=== PATIENT | female | born 1945 | race Caucasian/White ===

== ENCOUNTER 2017-01-25 08:50 | Day surgery (SDC) | payer OTHER ==
[2017-01-25 09:20] VITALS: BMI 24.8
[2017-01-25] MEDS ORDERED: PROPOFOL 20 ML ONE (09:36)
[2017-01-25 10:31] VITALS: TEMP 97.3
[2017-01-25 12:11] VITALS: BP 122/69; PULSE 60
--- NOTE | 2017-01-27 16:50 | PATH ---
Surgical Pathology Report Patient Name: TRINH CRUMP [facility]. Rec. #: [id number] /Age/Gender: 1945 (Age: 71) / F Account: [id number] Location: U-ENDOSCOPY Taken: 01/25/2017 Received: 01/25/2017 Reported: 01/27/2017 Physicians: Aury Cruz M.D. Specimen(s) Received A: BX RECTAL POLYP B: BX-CECAL POLYPS C: DUSTAL TRANSVERSE COLON POLYP D: DESCENDING COLON POLYP E: BX SIGMOID POLYPS Clinical History Preoperative diagnosis: Colon cancer surveillance Postoperative diagnosis: Polyps, diverticulosis Final Diagnosis A. RECTUM, POLYP, BIOPSY: HYPERPLASTIC POLYP. B. CECUM, POLYPS, BIOPSY: POLYPOID COLONIC MUCOSA WITH PROMINENT LYMPHOID AGGREGATES. C. DISTAL TRANSVERSE COLON, POLYP, BIOPSY: TUBULAR ADENOMA. D. DESCENDING COLON, POLYP, BIOPSY: HYPERPLASTIC POLYP, INFLAMED AND CAUTERIZED. E. SIGMOID COLON, POLYPS, BIOPSY: HYPERPLASTIC POLYP. Electronically Signed Candice Drummond M.D. Gross Description A. Received in formalin, labeled "biopsy rectal polyp" are 3 ernst, irregular portions of soft tissue ranging from 0.1-0.4 cm. in greatest dimension. The specimens are submitted in toto in one cassette. B. Received in formalin, labeled "biopsy cecal polyps" are 3 ernst, irregular portions of soft tissue ranging from 0.2-0.4 cm. in greatest dimension. The specimens are submitted in toto in one cassette. C. Received in formalin, labeled "polyp distal transverse colon" is a ernst, irregular portion of soft tissue measuring 0.3 cm. in greatest dimension. The specimen is submitted in toto in one cassette. D. Received in formalin, labeled "polyp descending colon" is a ernst, irregular portion of soft tissue measuring 0.1 cm. in greatest dimension. The specimen is submitted in toto in one cassette. E. Received in formalin, labeled "biopsy sigmoid" are 2 ernst, irregular portions of soft tissue measuring 0.3 and 0.4 cm. in greatest dimension. The specimens are submitted in toto in one cassette. 01/25/201701/25/2017
== END 2017-01-25 11:30 | disposition home or self-care (01) ==
LOC: JASU-ENDO 08:50
PROVIDERS: ATTEND Internal Medicine Gastroenterology
PROC: 0DBL8ZX Excision of Transverse Colon, Via Natural or Artificial Opening Endoscopic, Diagnostic (ICD-10-PCS; 2017-01-25)
PROC: 0DBH8ZX Excision of Cecum, Via Natural or Artificial Opening Endoscopic, Diagnostic (ICD-10-PCS; 2017-01-25)
PROC: 0DBN8ZX Excision of Sigmoid Colon, Via Natural or Artificial Opening Endoscopic, Diagnostic (ICD-10-PCS; 2017-01-25)
PROC: 0DBP8ZX Excision of Rectum, Via Natural or Artificial Opening Endoscopic, Diagnostic (ICD-10-PCS; 2017-01-25)
PROC: 0DBM8ZX Excision of Descending Colon, Via Natural or Artificial Opening Endoscopic, Diagnostic (ICD-10-PCS; principal; 2017-01-25 10:00)
DX: Z12.11 Encounter for screening for malignant neoplasm of colon (principal); Z86.010 Personal history of colon polyps; K62.1 Rectal polyp; K64.8 Other hemorrhoids; K57.30 Diverticulosis of large intestine without perforation or abscess without bleeding; D12.0 Benign neoplasm of cecum; D12.4 Benign neoplasm of descending colon; D12.5 Benign neoplasm of sigmoid colon; D12.3 Benign neoplasm of transverse colon
CPT/HCPCS: 88305-TC

== ENCOUNTER 2017-11-13 21:26 | Inpatient (IN) | payer OTHER ==
[2017-11-13] MEDS ORDERED: DEXAMETHASONE SOD PHOSPHATE 10 MG/1 ML VIAL IVPUSH ONE (21:43)
[2017-11-13] MEDS ORDERED: FAMOTIDINE 20 MG/50 ML IVPB 20 MG/50 ML MG IVPB ONE ×2 (21:43→21:47)
--- NOTE | 2017-11-13 21:45 | PDOC ---
Attending Attestation - HPI HPI: 11/13/17 23:24 The patient is a 72 year old female with a significant PMH of anaphylaxis, arthritis, right mastectomy, colon ca, hypothyroidism, anemia, ans chronic atrial fibrillation who presents to the emergency department with an allergic reaction prior to arrival to ED. The patient reports that she was at a family gathering when she began to experience worsening tongue swelling. She state reports some associated throat swelling as well. The patient reports that she has experienced this episode in the past. She states that she took 4 prednisone and benadryl prior to arrival with no apparent relief. She denies any other symptoms . she denies any fever, chills, nause, vomiting, diarrhea, constipation or urinary symptoms. She denies any chest pain, shortness of breath , headache or dizziness. The patient denies any other complaints. PCP:Dr. Pope - Physicial Exam PE: 11/13/17 23:24 GENERAL: Awake, alert, and fully oriented, in no acute distress HEAD: No signs of trauma EYES: PERRLA, EOMI, sclera anicteric, conjunctiva clear ENT: (+)tongue large, able to lift, swallow and talk with lisp. Auricles normal inspection, hearing grossly normal, nares patent, oropharynx clear without exudates. Moist mucosa NECK: Normal ROM, supple, no lymphadenopathy, JVD, or masses LUNGS: Breath sounds equal, clear to auscultation bilaterally. No wheezes, and no crackles HEART: Regular rate and rhythm, normal S1 and S2, no murmurs, rubs or gallops ABDOMEN: Soft, nontender, normoactive bowel sounds. No guarding, no rebound. No masses EXTREMITIES: Normal range of motion, no edema. No clubbing or cyanosis. No cords, erythema, or tenderness NEUROLOGICAL: Cranial nerves II through XII grossly intact. Normal speech, normal gait SKIN: Warm, Dry, normal turgor, no rashes or lesions noted. Documentation prepared by Susana Deluna, acting as medical device sales for Lo Arndt MD. <Susana Deluna - Last Filed: 11/13/17 23:24> - Resident Resident Name: Yann Willard - ED Attending Attestation I have performed the following: I have examined & evaluated the patient, The case was reviewed & discussed with the resident, I agree w/resident's findings & plan - HPI HPI: 11/13/17 22:19 Pt was at a family gathering this afternoon. At 7:[address] home, she developed tongue swelling. Pt states that she had eaten chips,dip, cucumber, artichokes and veggie pizza. There was a dog in the home, and she has a dog allergy. Pt has had tongue swelling in the past, and body painter cannot figure out what she is allergic to. Pt was treated with steroids and benadryl and epinephrine in the ER. ENT contacted, and they recommend 2 U FFP. Pt will be admitted for observation. She is awaiting her lab results. - Physicial Exam PE: 11/13/17 22:27 Pt is A+Ox3 and in NAD. She is smiling and talking with us as well as family member at the bedside. Pt's tingue hasn't gotten larger or smaller. She will likely be admitted for overnight eval. - Medical Decision Making 11/13/17 22:42 CBC is stable. T+S being done before we get the FFPs. Pt is stable. 11/13/17 23:25 Pt's tongue is stable. 11/13/17 23:43 CXR normal; same as old. Admitted to hospitalist for observation <Lo Arndt - Last Filed: 11/14/17 19:48>
[2017-11-13] MEDS ORDERED: DEXAMETHASONE SOD PHOSPHATE 10 MG/1 ML VIAL ONE (21:47)
[2017-11-13] MEDS ORDERED: EPINEPHrine 1:1,000 0.3 MG/0.3 ML SYR IM ONE (21:58)
[2017-11-13] MEDS ORDERED: EPINEPHrine/PF 1 MG/1 ML (1:1,000) AMPULE ONE (22:03)
--- NOTE | 2017-11-13 22:20 | PDOC ---
History of Present Illness - General Chief Complaint: Allergic Reaction Stated Complaint: Allergic Reaction Time Seen by Provider: 11/13/17 21:32 History Source: Patient Exam Limitations: No Limitations - History of Present Illness Initial Comments: 11/13/17 22:20 Patient is 72F with history of recurrent tongue and throat swelling 2/2 unknown cause, colon cancer, afib, hypothyroidism here today complaining of tongue and throat swelling that started an hour prior to presentation. Patient denies eating new foods or taking new medications. Endorses nausea, denies vomiting. Denies wheezing and shortness of breath. Denies chest pain, abdominal pain, diarrhea. Patient states that she took "4 pills" of prednisone and 1 benadryl with no effect. Past History - Past Medical History Allergies/Adverse Reactions: Allergies Allergy/AdvReac Type Severity Reaction Status Date / Time cat dander Allergy Verified 11/13/17 22:41 cephalexin [From Keflex] Allergy Verified 11/13/17 21:29 dog dander Allergy Verified 11/13/17 22:41 Home Medications: Ambulatory Orders Levothyroxine [Synthroid -] 125 mcg PO DAILY@0700 #0 tablet 04/28/11 Alendronate Na [Fosamax (Weekly)] 70 mg PO Q7D 07/26/14 Verapamil HCl ER [Calan Sr -] 120 mg PO BID 07/26/14 metFORMIN HCL [Glucophage -] 500 mg PO DAILY 07/26/14 Ranitidine [Zantac -] 150 mg PO HS 02/18/15 Devin/D3/Mag11/Zinc/Metal Can Inspector/Sukumar/Bor [Caltrate 600+D Plus Tablet] 1 each PO DAILY 01/01 Cholecalciferol (Vitamin D3) [Vitamin D -] 200 unit PO DAILY 01/25/17 Multivitamin/Iron/Folic Acid [Centrum Adults Tablet] 1 each PO DAILY 01/25/17 Anemia: Yes Asthma: No Cancer: Yes (/RT.MASTECTOMY/CHEMO ; COLON) Cardiac Disorders: Yes (CHRONIC AFIB) CVA: No COPD: No CHF: No Dementia: No Diabetes: Yes GI Disorders: No (COLON POLYPS & COLON CA) Disorders: No HTN: Yes Hypercholesterolemia: No Liver Disease: No Seizures: No Thyroid Disease: Yes - Surgical History Abdominal Surgery: Yes (PARTIAL COLECTOMY FOR COLON CA) Appendectomy: No Cardiac Surgery: No Cholecystectomy: No Lung Surgery: No Neurologic Surgery: No Orthopedic Surgery: Yes - Suicide/Smoking/Psychosocial Hx Smoking Status: No Smoking History: Never smoked Have you smoked in the past 12 months: No Number of Cigarettes Smoked Daily: 0 If you are a former smoker, when did you quit?: 1987 Hx Alcohol Use: Yes (SOCIAL) Drug/Substance Use Hx: No Substance Use Type: None Hx Substance Use Treatment: No Review of Systems - Review of Systems Able to Perform ROS?: Yes Comments:: 11/13/17 22:24 GENERAL/CONSTITUTIONAL: No fever or chills. No weakness. HEAD, EYES, EARS, NOSE AND THROAT: No change in vision. No ear pain or discharge. No sore throat. CARDIOVASCULAR: No chest pain or shortness of breath RESPIRATORY: No cough, wheezing, or hemoptysis. GASTROINTESTINAL: +nausea, no vomiting, diarrhea or constipation. GENITOURINARY: No dysuria, frequency, or change in urination. MUSCULOSKELETAL: No joint or muscle swelling or pain. No neck or back pain. SKIN: No rash NEUROLOGIC: No headache, vertigo, loss of consciousness, or change in strength/ sensation. ENDOCRINE: No increased thirst. No abnormal weight change HEMATOLOGIC/LYMPHATIC: No anemia, easy bleeding, or history of blood clots. ALLERGIC/IMMUNOLOGIC: No hives or skin allergy. *Physical Exam - Vital Signs Last Vital Signs Temp Pulse Resp BP Pulse Ox 98.5 F 80 18 177/79 H 97 11/13/17 21:27 11/13/17 21:27 11/13/17 21:27 11/13/17 21:27 11/13/17 21:27 - Physical Exam Comments: 11/13/17 22:26 GENERAL: Awake, alert, and fully oriented, in no acute distress HEAD: No signs of trauma, normocephalic, atraumatic EYES: PERRLA, EOMI, sclera anicteric, conjunctiva clear ENT: Auricles normal inspection, hearing grossly normal, nares patent, tongue swollen, anterior neck swollen underneath jaw NECK: Normal ROM, supple, no lymphadenopathy, JVD. Anterior neck swollen LUNGS: No distress, speaks full sentences, clear to auscultation bilaterally HEART: Regular rate and rhythm, normal S1 and S2, no murmurs, rubs or gallops, peripheral pulses normal and equal bilaterally. ABDOMEN: Soft, nontender, normoactive bowel sounds. No guarding, no rebound. No masses EXTREMITIES: Normal inspection, Normal range of motion, no edema. No clubbing or cyanosis. NEUROLOGICAL: Cranial nerves II through XII grossly intact. Normal speech, normal gait, no focal sensorimotor deficits SKIN: Warm, Dry, normal turgor, no rashes or lesions noted. ED Treatment Course - LABORATORY CBC & Chemistry Diagram: 11/13/17 22:26 11/13/17 22:26 - RADIOLOGY Radiology Studies Ordered: Category Date Time Status CXRPORT [CHEST X-RAY PORTABLE*] [RAD] Stat Radiology 11/13/17 21:43 Taken - Medications Given in the ED: ED Medications Discontinued Medications Generic Name Dose Route Start Last Admin Trade Name Freq PRN Reason Stop Dose Admin Dexamethasone Sodium Phosphate 10 mg 11/13/17 21:43 11/13/17 22:11 Decadron Injection - IVPUSH 11/13/17 21:44 10 mg ONCE ONE Administration Diphenhydramine HCl 50 mg 11/13/17 21:43 11/13/17 22:11 Benadryl Injection - IVPUSH 11/13/17 21:44 50 mg ONCE ONE Administration Epinephrine 0.3 mg 11/13/17 21:58 11/13/17 22:11 Epipen 0.3mg - IM 11/13/17 21:59 0.3 mg ONCE ONE Administration Famotidine/Sodium Chloride 20 mg in 50 mls @ 100 mls/hr 11/13/17 21:43 22:11 Pepcid 20 Mg Premixed Ivpb - IVPB 11/13/17 22:12 100 mls/hr ONCE ONE Administration Medical Decision Making - Medical Decision Making 11/13/17 22:26 Patient is a 72F with history of recurrent episodes of tongue swelling, afib, hypothyroidism here today with tongue swelling and throat swelling. Vitals normal and stable. Lungs clear. Patient currently protecting airway. Given benadryl, decadron, pepcid, IM epi. Dr Perdomo (ENT, personal cell [phone]) paged, suggests FFP. Will give 2 units. 11/13/17 22:51 Patient reassessed, airway is stable. 11/13/17 23:02 Patient reassessed, airway is stable, tongue same amount of swelling. 11/13/17 23:06 CBC, CMP Unremarkable. EKG shows normal sinus rhythm with rate of 87. No st elevations/depressions. Normal axis. QTc 498. Normal intervals. Diffusely flattened t waves. 11/13/17 23:51 Approved for ICU by Dr Plasencia (Dr Gonzalez attending). D/W Dr Escamilla, accepted to [facility]. *DC/Admit/Observation/Transfer Diagnosis at time of Disposition: Angioedema - Discharge Dispostion Condition at time of disposition: Stable Decision to Admit order: Yes - Referrals Referrals: Yann Pope MD [Primary Care Provider] - - Patient Instructions - Post Discharge Activity
[2017-11-13 22:24] LABS: HEMATOCRIT 37.2 % (32.4-45.2); HEMOGLOBIN 12.2 GM/dL (10.7-15.3); MCH 28.3 pg (25.7-33.7); MCHC 32.7 g/dl (32.0-36.0); MEAN CELL VOLUME 86.5 fl (80-96); MEAN PLT VOLUME 8.8 fl (7.5-11.1); PLATELET COUNT 269 K/MM3 (134-434); RBC 4.31 M/mm3 (3.60-5.2); RDW 13.9 % (11.6-15.6); WHITE BLOOD COUNT 7.2 K/mm3 (4.0-10.0)
[2017-11-13] MEDS ORDERED: SODIUM CHLORIDE 500 ML IV STA (22:34)
[2017-11-13 22:48] LABS: ALBUMIN 4.1 g/dl (3.4-5.0); ALK PHOS 83 U/L (45-117); ANION GAP 8 MMOL/L (8-16); BILIRUBIN,TOTAL 0.3 mg/dL (0.2-1); BLOOD UREA NITROGEN 15 mg/dL (7-18); CALCIUM 9.1 mg/dL (8.5-10.1); CHLORIDE 104 mmol/L (98-107); CO2 27 mmol/L (21-32); CREATININE 0.7 mg/dL (0.55-1.3); GLUCOSE,RANDOM 139 mg/dL (74-106); POTASSIUM 3.9 mmol/L (3.5-5.1); SGOT/AST 25 U/L (15-37); SGPT/ALT 33 U/L (13-61); SODIUM 139 mmol/L (136-145); TOT PROT 7.4 g/dl (6.4-8.2)
[2017-11-14] MEDS ORDERED: SODIUM CHLORIDE 1,000 ML IV SCH (00:30)
[2017-11-14] MEDS ORDERED: PATIENT'S OWN MEDICATION (NON-FORMULARY) (Alendronate Na [Fosamax (Weekly)] 70 MG) PO SCH ×2 (00:30→01:30)
--- NOTE | 2017-11-14 00:38 | PN ---
Teaching Attending Note Name of Resident: José Miguel Escamilla ATTENDING PHYSICIAN STATEMENT I saw and evaluated the patient. I reviewed the resident's note and discussed the case with the resident. I agree with the resident's findings and plan as documented. SUBJECTIVE: OBJECTIVE: ASSESSMENT AND PLAN: 72 y/o female with hx of colon cancer (1998), HTN, breast cancer (1987) and angioedema presented with tongue swelling and heaviness and inability to speak, patient was noted to have an acute exacerbation of her angioedema, patient received dexamethasone,, epinepharine in the ER will admit the patient as observation plan: admit to ICU due to high risk for intubation c/w methylprednisone 40 q8hrs ENT evaluation plasma transfusion keep patient NPO
--- NOTE | 2017-11-14 01:00 | HP ---
CHIEF COMPLAINT: facial swelling HISTORY OF PRESENT ILLNESS: 72 year old female with a history of DMII, HTN, colon and breast CA, and angioedema presents to the hospital for facial swelling that occurred around 7: 30pm last night. Reports that she felt a tingle in her mouth while she was driving, then noticed that her neck began to swell anteriorly and noticed flushing. She denied shortness of breath during the experience. Reports that she has experienced angioedema 8-9 times over the past 15 years but she states that she has not had a workup done to find out why she has had this happen. Denies ever being intubated before. Reports feeling better now than when she first came to the ED. ER course was notable for: (1) labs wnl (2) FFP given in ED based on ENT reccs Recent Travel: denies PAST MEDICAL HISTORY: DMII, HTN, colon and breast CA, and angioedema PAST SURGICAL HISTORY: B/L knee repairs, colectomy, mastectomy Social History: Smoking: quit smoking in 1987 Alcohol: socially Drugs: denies Family History: father passed from stroke Allergies cat dander Allergy (Verified 11/13/17 22:41) cephalexin [From Keflex] Allergy (Verified 11/13/17 21:29) dog dander Allergy (Verified 11/13/17 22:41) HOME MEDICATIONS: Home Medications Medication Instructions Recorded Levothyroxine [Synthroid -] 125 mcg PO DAILY@0700 #0 tablet 04/28/11 Alendronate Na [Fosamax (Weekly)] 70 mg PO Q7D 07/26/14 Verapamil HCl ER [Calan Sr -] 120 mg PO BID 07/26/14 metFORMIN HCL [Glucophage -] 500 mg PO DAILY 07/26/14 Ranitidine [Zantac -] 150 mg PO HS 02/18/15 Devin/D3/Mag11/Zinc/Road Supervisor Of Engines/Sukumar/Bor 1 each PO DAILY 01/25/17 [Caltrate 600+D Plus Tablet] Cholecalciferol (Vitamin D3) 200 unit PO DAILY 01/25/17 [Vitamin D -] Multivitamin/Iron/Folic Acid 1 each PO DAILY 01/25/17 [Centrum Adults Tablet] REVIEW OF SYSTEMS CONSTITUTIONAL: Absent: fever, chills, diaphoresis, generalized weakness, malaise, loss of appetite, weight change HEENT: throat swelling, mouth swelling Absent: rhinorrhea, nasal congestion, throat pain, difficulty swallowing, ear pain, eye pain, visual changes CARDIOVASCULAR: Absent: chest pain, syncope, palpitations, irregular heart rate, lightheadedness , peripheral edema RESPIRATORY: Absent: cough, shortness of breath, dyspnea with exertion, orthopnea, wheezing, stridor, hemoptysis GASTROINTESTINAL: Absent: abdominal pain, abdominal distension, nausea, vomiting, diarrhea, constipation, melena, hematochezia GENITOURINARY: Absent: dysuria, frequency, urgency, hesitancy, hematuria, flank pain, genital pain MUSCULOSKELETAL: Absent: myalgia, arthralgia, joint swelling, back pain, neck pain SKIN: Absent: rash, itching, pallor HEMATOLOGIC/IMMUNOLOGIC: Absent: easy bleeding, easy bruising, lymphadenopathy, frequent infections ENDOCRINE: Absent: unexplained weight gain, unexplained weight loss, heat intolerance, cold intolerance NEUROLOGIC: Absent: headache, focal weakness or paresthesias, dizziness, unsteady gait, seizure, mental status changes, bladder or bowel incontinence PSYCHIATRIC: Absent: anxiety, depression, suicidal or homicidal ideation, hallucinations. PHYSICAL EXAMINATION Vital Signs - 24 hr 11/13/17 11/13/17 11/13/17 21:27 22:09 23:44 Temperature 98.5 F 98.2 F Pulse Rate 80 Pulse Rate [ 89 Apical] Respiratory 18 18 Rate Blood Pressure 177/79 H Blood Pressure 133/63 [Left Arm] O2 Sat by Pulse 97 97 95 Oximetry (%) 11/14/17 00:03 Temperature 98.1 F Pulse Rate Pulse Rate [ 78 Apical] Respiratory 18 Rate Blood Pressure Blood Pressure 174/92 H [Left Arm] O2 Sat by Pulse 97 Oximetry (%) GENERAL: A&Ox3, no acute distress EYES: PERRLA, EOMI ENT: Moist mucus membranes, mild facial swelling noted, mild tongue swelling noted NECK: No JVD LUNGS: CTA, no wheezes HEART: RRR, no murmurs ABDOMEN: Soft, nontender, BS present MUSCULOSKELETAL: No CVA Tenderness EXTREMITIES: 2+ pulses, no edema. NEUROLOGICAL: Cranial nerves II-XII intact. Laboratory Results - last 24 hr 11/13/17 11/13/17 11/13/17 22:07 22:26 22:26 WBC 7.2 RBC 4.31 Hgb 12.2 Hct 37.2 MCV 86.5 MCH 28.3 MCHC 32.7 RDW 13.9 Plt Count 269 MPV 8.8 Sodium 139 Potassium 3.9 Chloride 104 Carbon Dioxide 27 Anion Gap 8 BUN 15 Creatinine 0.7 Creat Clearance w eGFR > 60 Random Glucose 139 H Calcium 9.1 Total Bilirubin 0.3 AST 25 ALT 33 Alkaline Phosphatase 83 Total Protein 7.4 Albumin 4.1 Blood Type Cancelled Antibody Screen Cancelled Antibody Identification Antigen Identification 11/13/17 22:30 WBC RBC Hgb Hct MCV MCH MCHC RDW Plt Count MPV Sodium Potassium Chloride Carbon Dioxide Anion Gap BUN Creatinine Creat Clearance w eGFR Random Glucose Calcium Total Bilirubin AST ALT Alkaline Phosphatase Total Protein Albumin Blood Type A POSITIVE Antibody Screen Positive H Antibody Identification Anti- e Antigen Identification E Antigen - NEGATIVE ASSESSMENT/PLAN: 72 year old female with a history of DMII, HTN, hypothyroid, colon and breast CA , and angioedema is admitted to the hospital for angioedema #Angioedema: improving, unknown cause yet considering she has had it multiple times over the last 15 years, began later in life - may be related to history of 2 primary cancers -heme consult for possible etiology evaluation -solumedrol 40q8 -benadryl ordered -protonix -FFP given -monitor in ICU for worsening -keep NPO for now -IV NS -speech and swallow -ENT consult #Diabetes: stable -metformin when tolerable #Hypertension: stable -continue verapamil when tolerable #Hypothyroid: stable -continue synthroid when tolerable #FEN -IVNS @ 83 -lytes normal -NPO until speech/swallow #Prophylaxis -SCDs #Disposition -admit obs Visit type - Emergency Visit Emergency Visit: Yes ED Registration Date: 11/14/17 Care time: The patient presented to the Emergency Department on the above date and was hospitalized for further evaluation of their emergent condition. - New Patient This patient is new to me today: Yes Date on this admission: 11/14/17 - Critical Care Critical Care patient: Yes Total Critical Care Time (in minutes): 36 Critical Care Statement: The care of this patient involved high complexity decision making to prevent further life threatening deterioration of the patient 's condition and/or to evaluate & treat vital organ system(s) failure or risk of failure. Hospitalist Screening - Colonoscopy Questionnaire Colonoscopy Questionnaire: Colonoscopy Questionnaire - Patient: 50 - 75 years old and never had a screening colonoscopy: No History of colon or rectal polyps, or CA: Yes History of IBD, Crohn's disease or UC: No History of abdominal radiation therapy as a child: No - Relative: 1 with colon or rectal CA, or polyps at age 60 or younger: Unknown Colon or rectal CA diagnosed at age 45 or younger: No Multiple relatives with colon or rectal CA: Unknown - Outcome: Screening Result: Positive Screen
--- NOTE | 2017-11-14 01:14 | CONSULT ---
Consultation: REQUESTING PROVIDER: CONSULT REQUEST: We have been asked to medically evaluate this patient for ICU. HISTORY OF PRESENT ILLNESS: 72 y/o F with PMH breast CA (1997; tx w/chemo), colon CA (1998) repeated episodes of angioedema (8-9x), who presents to the ED c/o throat and tongue swelling that started at 7:30 this evening. As per pt, she was driving home this evening when her tongue began to tingle. She subsequently developed throat and tongue swelling, as well as flushing of the face and difficulty with phonation. Took prednisone and benadryl at home without much relief. Without past intubations and does not know trigger of current episode. States that in the past, she had a similar reaction to cephalexin, and with ambien when being prepped for surgery. However, subsequent episodes occurred without specific connection. In ED, pt received dexamethasone 10mg IVP x 1, epinephrine 0.3mg IM x 1, famotidine 20mg x 1, 500 ccs NS and started on FFP. No family history. Denies SAMANIEGO, fever, chills, or changes in urinary or bowel function. allergies: cats, dogs, cephalexin, ambien family hx: no allergies REVIEW OF SYSTEMS: CONSTITUTIONAL: Absent: fever, chills, diaphoresis, generalized weakness, malaise, loss of appetite, weight change HEENT: +facial swelling Absent: rhinorrhea, nasal congestion, throat pain, throat swelling, difficulty swallowing, mouth swelling, ear pain, eye pain, visual changes CARDIOVASCULAR: Absent: chest pain, syncope, palpitations, irregular heart rate, lightheadedness , peripheral edema RESPIRATORY: Absent: cough, shortness of breath, dyspnea with exertion, orthopnea, wheezing, stridor, hemoptysis GASTROINTESTINAL: Absent: abdominal pain, abdominal distension, nausea, vomiting, diarrhea, constipation, melena, hematochezia GENITOURINARY: Absent: dysuria, frequency, urgency, hesitancy, hematuria, flank pain, genital pain MUSCULOSKELETAL: Absent: myalgia, arthralgia, joint swelling, back pain, neck pain SKIN: Absent: rash, itching, pallor HEMATOLOGIC/IMMUNOLOGIC: Absent: easy bleeding, easy bruising, lymphadenopathy, frequent infections ENDOCRINE: Absent: unexplained weight gain, unexplained weight loss, heat intolerance, cold intolerance NEUROLOGIC: Absent: headache, focal weakness or paresthesias, dizziness, unsteady gait, seizure, mental status changes, bladder or bowel incontinence PSYCHIATRIC: Absent: anxiety, depression, suicidal or homicidal ideation, hallucinations. PHYSICAL EXAMINATION Vital Signs - 24 hr 11/13/17 11/13/17 11/13/17 21:27 22:09 23:44 Temperature 98.5 F 98.2 F Pulse Rate 80 Pulse Rate [ 89 Apical] Respiratory 18 18 Rate Blood Pressure 177/79 H Blood Pressure 133/63 [Left Arm] O2 Sat by Pulse 97 97 95 Oximetry (%) 11/14/17 00:03 Temperature 98.1 F Pulse Rate Pulse Rate [ 78 Apical] Respiratory 18 Rate Blood Pressure Blood Pressure 174/92 H [Left Arm] O2 Sat by Pulse 97 Oximetry (%) GENERAL: Resting in bed. Awake, alert, and fully oriented, in no acute distress. HEAD: Normal with no signs of trauma. +facial flushing EYES: Pupils equal, round and reactive to light, extraocular movements intact, sclera anicteric, conjunctiva clear. EARS, NOSE, THROAT: Ears normal, nares patent, +edematous tongue, uvula NECK: Normal range of motion, supple without lymphadenopathy, JVD, or masses. LUNGS: Breath sounds equal, clear to auscultation bilaterally. No wheezes, and no crackles. No accessory muscle use. HEART: Regular rate and rhythm, normal S1 and S2 without murmur, rub or gallop. ABDOMEN: Soft, nontender, not distended, normoactive bowel sounds, no guarding, no rebound, no masses. LOWER EXTREMITIES: 2+ pt pulses, warm, well-perfused. No calf tenderness. No peripheral edema. NEUROLOGICAL: Cranial nerves II-XII intact. +difficulty with phonation PSYCHIATRIC: Cooperative. Good eye contact. Appropriate mood and affect. SKIN: Warm, dry, normal turgor Laboratory Results 11/13/17 11/13/17 11/13/17 22:07 22:26 22:26 WBC 7.2 RBC 4.31 Hgb 12.2 Hct 37.2 MCV 86.5 MCH 28.3 MCHC 32.7 RDW 13.9 Plt Count 269 MPV 8.8 Sodium 139 Potassium 3.9 Chloride 104 Carbon Dioxide 27 Anion Gap 8 BUN 15 Creatinine 0.7 Creat Clearance w eGFR > 60 Random Glucose 139 H Calcium 9.1 Total Bilirubin 0.3 AST 25 ALT 33 Alkaline Phosphatase 83 Total Protein 7.4 Albumin 4.1 Active Medications Generic Name Dose Route Start Last Admin Trade Name Freq PRN Reason Stop Dose Admin Chlorhexidine Gluconate 1 applic 11/14/17 22:00 Hibiclens For Decolonization - TP HS [facility] Cholecalciferol 200 unit 11/14/17 10:00 Vitamin D3 - PO DAILY MOY Sodium Chloride 1,000 mls @ 83 mls/hr 11/14/17 00:30 Normal Saline - IV ASDIR MOY Levothyroxine Sodium 125 mcg 11/14/17 07:00 Synthroid - PO DAILY@0700 MOY Metformin HCl 500 mg 11/14/17 10:00 Glucophage - PO DAILY MOY Methylprednisolone Sodium Succinate 40 mg 11/14/17 02:00 Solu-Medrol - IVPUSH Q8H-IV MOY Mupirocin 1 applic 11/14/17 10:00 Bactroban Ointment (For Decolonization) - NS 11/19/17 09:59 BID MOY Non-Formulary Medication 70 mg 11/14/17 00:30 11/14/17 01:06 Alendronate Na [Fosamax (Weekly)] PO Not Given Q7D MOY Non-Formulary Medication 1 each 11/14/17 10:00 Devin/D3/Mag11/Zinc/Legislative Advocate/Sukumar/Bor [Caltrate 600+D Plus Tablet] PO DAILY MOY Non-Formulary Medication 1 each 11/14/17 10:00 Multivitamin/Iron/Folic Acid [Centrum Adults Tablet] PO DAILY MO[facility] Ranitidine HCl 150 mg 11/14/17 22:00 Zantac - PO HS [facility] Verapamil HCl 120 mg 11/14/17 10:00 Calan Sr - PO BID [facility] ASSESSMENT/PLAN: 72 y/o F with PMH breast CA (1997; tx w/chemo), colon CA (1998) repeated episodes of angioedema (8-9x), who presents to the ED c/o throat and tongue swelling that started at 7:30 this evening. Pt admitted to ICU for observation 2 /2 angioedema, airway monitoring. Allergy/Immuno #Angioedema -continue to monitor airway for signs of compromise -continue FFP, 2U -benadryl 25mg IVP q6h PRN -solumedrol 40mg IVP q8h -ENT evaluation: Dr. Perdomo -heme evaluation as per primary team - to assess for acquired dz d/t repeated episodes Endocrine #DM -metformin when able to tolerate PO #Hypothyroid -synthroid as above Cardio #Hypertension- currently controlled -verapamil as above #F/E/N IV NS 83 cc/hr continue to follow lytes NPO; speech and swallow consult #PPX DVT: SCD's GI: protonix 40mg IVP qd #Dispo ICU monitoring overnight to assess for airway, expect transfer tomorrow if continues to improve. Dispo: We will continue to follow the patient. Thank you for this consultative opportunity. Visit type - Emergency Visit Emergency Visit: Yes ED Registration Date: 11/14/17 Care time: The patient presented to the Emergency Department on the above date and was hospitalized for further evaluation of their emergent condition. - New Patient This patient is new to me today: Yes Date on this admission: 11/14/17 - Critical Care Critical Care patient: Yes Total Critical Care Time (in minutes): 45 Critical Care Statement: The care of this patient involved high complexity decision making to prevent further life threatening deterioration of the patient 's condition and/or to evaluate & treat vital organ system(s) failure or risk of failure.
[2017-11-14] MEDS ORDERED: methylPREDNISolone NA SUCC 40 MG/1 ML VIAL IVPUSH SCH ×2 (02:00→22:00)
[2017-11-14 02:13] VITALS: BMI 26.3
[2017-11-14] MEDS ORDERED: LEVOTHYROXINE NA 125 MCG TABLET (FP) PO SCH (07:00)
[2017-11-14] MEDS ORDERED: metFORMIN HCL 500 MG TABLET (FP) PO SCH (07:00)
--- NOTE | 2017-11-14 09:11 | PN ---
Physical Exam: SUBJECTIVE: Patient seen and examined at bedside. No acute complaints. OBJECTIVE: Vital Signs Period Temp Pulse Resp BP Sys/Hurst Pulse Ox Last 24 Hr 98.1 F-983 F 67-89 11-20 133-183/63-92 95-100 GENERAL: A&Ox3, NAD EYES: PERRLA, EOMI ENT: Moist mucus membranes, no edema or erythema appreciated NECK: supple, full ROM, no LAD, no JVD LUNGS: CTA b/l, no wheezes HEART: RRR, no murmurs ABDOMEN: +bs, soft, nontender, non-distended EXTREMITIES: 2+ pulses, no edema NEUROLOGICAL: blade changer, motor, sensory systems without focal deficit Laboratory Results - last 24 hr 11/13/17 11/13/17 11/13/17 22:07 22:26 22:26 WBC 7.2 RBC 4.31 Hgb 12.2 Hct 37.2 MCV 86.5 MCH 28.3 MCHC 32.7 RDW 13.9 Plt Count 269 MPV 8.8 Sodium 139 Potassium 3.9 Chloride 104 Carbon Dioxide 27 Anion Gap 8 BUN 15 Creatinine 0.7 Creat Clearance w eGFR > 60 Random Glucose 139 H Calcium 9.1 Total Bilirubin 0.3 AST 25 ALT 33 Alkaline Phosphatase 83 Total Protein 7.4 Albumin 4.1 Blood Type Cancelled Antibody Screen Cancelled Antibody Identification Antigen Identification 11/13/17 22:30 WBC RBC Hgb Hct MCV MCH MCHC RDW Plt Count MPV Sodium Potassium Chloride Carbon Dioxide Anion Gap BUN Creatinine Creat Clearance w eGFR Random Glucose Calcium Total Bilirubin AST ALT Alkaline Phosphatase Total Protein Albumin Blood Type A POSITIVE Antibody Screen Positive H Antibody Identification Anti- e Antigen Identification E Antigen - NEGATIVE Active Medications Generic Name Dose Route Start Last Admin Trade Name Freq PRN Reason Stop Dose Admin Calcium Carbonate/Cholecalciferol 1 tab 11/14/17 10:00 Os-Devin 500+D - PO DAILY MOY Chlorhexidine Gluconate 1 applic 11/14/17 22:00 Hibiclens For Decolonization - TP HS [facility] Cholecalciferol 200 unit 11/14/17 10:00 Vitamin D3 - PO DAILY [facility] Diphenhydramine HCl 25 mg 11/14/17 01:16 Benadryl Injection - IVPUSH Q6H PRN FOR ITCHING Influenza Virus Vaccine Quadrival 60 mcg 11/14/17 10:00 Flulaval Quad [id number] IM 11/14/17 10:01 .ONCE ONE Levothyroxine Sodium 125 mcg 11/14/17 07:00 11/14/17 06:38 Synthroid - PO 125 mcg DAILY@0700 MOY Administration Metformin HCl 500 mg 11/14/17 07:00 11/14/17 06:38 Glucophage - PO 500 mg DAILY@0700 MOY Administration Methylprednisolone Sodium Succinate 40 mg 11/14/17 02:00 11/14/17 02:58 Solu-Medrol - IVPUSH 40 mg Q8H-IV MOY Administration Multivitamins/Minerals/Vitamin C 1 tab 11/14/17 10:00 Tab-A-Vit - PO DAILY [facility] Mupirocin 1 applic 11/14/17 10:00 Bactroban Ointment (For Decolonization) - NS 11/19/17 09:59 BID [facility] Non-Formulary Medication 70 mg 11/14/17 01:30 Alendronate Na [Fosamax (Weekly)] PO Q7D [facility] Pantoprazole Sodium 40 mg 11/14/17 10:00 Protonix Iv IVPUSH DAILY [facility] Pneumococcal 13-Valent Conj Vacc 0.5 ml 11/14/17 10:00 Prevnar 13 Syringe - IM 11/14/17 10:01 .ONCE ONE Ranitidine HCl 150 mg 11/14/17 22:00 Zantac - PO HS MOY Verapamil HCl 120 mg 11/14/17 10:00 Calan Sr - PO BID [facility] ASSESSMENT/PLAN: 72 y/o F w/ PMHx DMII, HTN, hypothyroid, colon and breast CA, and angioedema admitted for acute episode of angioedema #Angioedema: -resolved -multiple episodes over 15 years, cause unknown -heme consult for possible etiology evaluation -solumedrol 40q12 -benadryl PRN -protonix -2 U FFP given in ED per ENT reccs -speech and swallow -ENT consult #Diabetes -controlled -home metformin #HTN -controlled -home verapamil #Hypothyroidism -home synthroid #FEN -no IVF -lytes normal -diabetic diet after clearance by S/S #PPx -DVT: SCDs -GI: Protonix #Dispo -transfer to med-surg vs D/C Visit type - Emergency Visit Emergency Visit: No - New Patient This patient is new to me today: Yes Date on this admission: 11/14/17 - Critical Care Critical Care patient: Yes Total Critical Care Time (in minutes): 40 Critical Care Statement: The care of this patient involved high complexity decision making to prevent further life threatening deterioration of the patient 's condition and/or to evaluate & treat vital organ system(s) failure or risk of failure.
[2017-11-14] MEDS ORDERED: predniSONE 20 MG TABLET (UD) PO SCH ×2 (10:00→22:00)
[2017-11-14] MEDS ORDERED: PNEUMOC 13-VAL CONJ-DIP CRM/PF 0.5 ML DISP.SYRIN IM ONE (10:00)
[2017-11-14] MEDS ORDERED: CHOLECALCIFEROL (VITAMIN D3) 400 UNIT TABLET (FP) PO SCH (10:00)
[2017-11-14] MEDS ORDERED: CALCIUM 500MG/VIT-D 200 UNITS COMBO TABLET (FP) PO SCH (10:00)
[2017-11-14] MEDS ORDERED: MUPIROCIN 2% TOPICAL OINTMENT FOR DECOLONIZATION NS SCH (10:00)
[2017-11-14] MEDS ORDERED: VERAPAMIL HCL 120 MG E.R. TABLET PO SCH (10:00)
[2017-11-14] MEDS ORDERED: PANTOPRAZOLE SODIUM 40 MG VIAL IVPUSH SCH (10:00)
[2017-11-14] MEDS ORDERED: FAMOTIDINE 20 MG/50 ML IVPB 20 MG/50 ML MG IVPB SCH (10:00)
[2017-11-14] MEDS ORDERED: MULTIVITAMINS (DAILY MVI) TABLET (FP) PO SCH (10:00)
[2017-11-14] MEDS ORDERED: FLU VACCINE QUAD 60 MCG/0.5 ML (MDV 18-19) IM ONE (10:00)
[2017-11-14 10:33] LABS: HEMATOCRIT 38.8 % (32.4-45.2); HEMOGLOBIN 12.8 GM/dL (10.7-15.3); MCH 28.5 pg (25.7-33.7); MEAN CELL VOLUME 86.4 fl (80-96); MEAN PLT VOLUME 8.5 fl (7.5-11.1); PLATELET COUNT 271 K/MM3 (134-434); RBC 4.49 M/mm3 (3.60-5.2); RDW 13.9 % (11.6-15.6); WHITE BLOOD COUNT 10.7 K/mm3 (4.0-10.0)
[2017-11-14 10:51] LABS: ANION GAP 9 MMOL/L (8-16); BLOOD UREA NITROGEN 13 mg/dL (7-18); CHLORIDE 105 mmol/L (98-107); CO2 26 mmol/L (21-32); CREATININE 0.6 mg/dL (0.55-1.3); GLUCOSE,RANDOM 152 mg/dL (74-106); PHOSPHOROUS 2.8 mg/dL (2.5-4.9); POTASSIUM 4.6 mmol/L (3.5-5.1); SODIUM 140 mmol/L (136-145)
--- NOTE | 2017-11-14 10:54 | PN ---
Teaching Attending Note Name of Resident: Marc Cline ATTENDING PHYSICIAN STATEMENT I saw and evaluated the patient. I reviewed the resident's note and discussed the case with the resident. I agree with the resident's findings and plan as documented. SUBJECTIVE: Pt seen and examined in the ICU. Feels back to baseline. No shortness of breath , dysphagia or dysphonia. OBJECTIVE: Vital Signs Period Temp Pulse Resp BP Sys/Hurst Pulse Ox Last 24 Hr 96.0 F-983 F 67-89 11-20 133-183/63-92 95-100 Intake & Output 11/11/17 11/12/17 11/13/17 11/14/17 23:59 23:59 23:59 23:59 Intake Total 700 Balance 700 Weight 72.575 kg 73.981 kg Gen: NAD at rest Heart: RRR Lung: decreased breath sounds at the bases Abd: soft, nontender Ext: no edema CBC, BMP 11/14/17 10:10 11/14/17 10:10 Active Medications Calcium Carbonate/Cholecalciferol (Os-Devin 500+D -) 1 tab PO DAILY [facility] Chlorhexidine Gluconate (Hibiclens For Decolonization -) 1 applic TP HS [facility] Cholecalciferol (Vitamin D3 -) 200 unit PO DAILY [facility] Diphenhydramine HCl (Benadryl Injection -) 25 mg IVPUSH Q6H PRN PRN Reason: FOR ITCHING Levothyroxine Sodium (Synthroid -) 125 mcg PO DAILY@0700 [facility] Last Admin: 11/14/17 06:38 Dose: 125 mcg Metformin HCl (Glucophage -) 500 mg PO DAILY@0700 [facility] Last Admin: 11/14/17 06:38 Dose: 500 mg Multivitamins/Minerals/Vitamin C (Tab-A-Vit -) 1 tab PO DAILY [facility] Mupirocin (Bactroban Ointment (For Decolonization) -) 1 applic NS BID [facility] Stop: 11/19/17 09:59 Pantoprazole Sodium (Protonix Iv) 40 mg IVPUSH DAILY [facility] Prednisone (Deltasone -) 40 mg PO DAILY [facility] Stop: 11/15/17 12:00 Ranitidine HCl (Zantac -) 150 mg PO HS [facility] Verapamil HCl (Calan Sr -) 120 mg PO BID [facility] ASSESSMENT AND PLAN: Angioedema resolving HTN DM Hypothyroidism h/o Colon and Breast Ca - can change steroids to PO prednisone - antihistamines - continue home meds - can monitor on floor or d/c home - needs outpt allergy f/u
[2017-11-14] MEDS: ACETAMINOPHEN 325 MG TABLET (FP) PO ONE ×2 (11:22→17:39)
[2017-11-14 14:47] VITALS: TEMP 97
--- NOTE | 2017-11-14 16:51 | PN ---
Progress Note, Physician History of Present Illness: 72 y/o female with hx of colon cancer (1998), HTN, breast cancer (1987) and angioedema presented with tongue swelling and heaviness and inability to speak, patient was noted to have an acute exacerbation of her angioedema, patient received dexamethasone,, epinepharine - Current Medication List Current Medications: Active Medications Calcium Carbonate/Cholecalciferol (Os-Devin 500+D -) 1 tab PO DAILY [facility] Last Admin: 11/14/17 10:49 Dose: 1 tab Chlorhexidine Gluconate (Hibiclens For Decolonization -) 1 applic TP HS [facility] Cholecalciferol (Vitamin D3 -) 200 unit PO DAILY [facility] Last Admin: 11/14/17 10:49 Dose: 200 unit Diphenhydramine HCl (Benadryl Injection -) 25 mg IVPUSH Q6H PRN PRN Reason: FOR ITCHING Levothyroxine Sodium (Synthroid -) 125 mcg PO DAILY@0700 [facility] Last Admin: 11/14/17 06:38 Dose: 125 mcg Metformin HCl (Glucophage -) 500 mg PO DAILY@0700 [facility] Last Admin: 11/14/17 06:38 Dose: 500 mg Multivitamins/Minerals/Vitamin C (Tab-A-Vit -) 1 tab PO DAILY [facility] Last Admin: 11/14/17 10:48 Dose: 1 tab Mupirocin (Bactroban Ointment (For Decolonization) -) 1 applic NS BID [facility] Stop: 11/19/17 09:59 Last Admin: 11/14/17 10:48 Dose: 1 applic Pantoprazole Sodium (Protonix Iv) 40 mg IVPUSH DAILY [facility] Last Admin: 11/14/17 10:49 Dose: 40 mg Prednisone (Deltasone -) 40 mg PO DAILY [facility] Stop: 11/15/17 12:00 Last Admin: 11/14/17 10:57 Dose: 40 mg Ranitidine HCl (Zantac -) [address] [facility] Verapamil HCl (Calan Sr -) 120 mg PO BID [facility] Last Admin: 11/14/17 10:50 Dose: 120 mg - Objective Vital Signs: Vital Signs Temperature 97.0 F L 11/14/17 14:00 Pulse Rate 80 11/14/17 14:00 Respiratory Rate 20 11/14/17 14:00 Blood Pressure 124/63 11/14/17 14:00 O2 Sat by Pulse Oximetry (%) 100 11/14/17 09:00 Labs: CBC, BMP 11/14/17 10:10 11/14/17 10:10 Problem List - Problems (1) Angioedema Code(s): T78.3XXA - ANGIONEUROTIC EDEMA, INITIAL ENCOUNTER (2) Atrial fibrillation Code(s): I48.91 - UNSPECIFIED ATRIAL FIBRILLATION (3) Diabetes Code(s): E11.9 - TYPE 2 DIABETES MELLITUS WITHOUT COMPLICATIONS (4) Hypothyroid Code(s): E03.9 - HYPOTHYROIDISM, UNSPECIFIED (5) HTN (hypertension) Code(s): I10 - ESSENTIAL (PRIMARY) HYPERTENSION
[2017-11-14 17:23] VITALS: BP 138/71; PULSE 110
[2017-11-14] MEDS ORDERED: diphenhydrAMINE HCL 25 MG CAPSULE (FP) PO PRN (17:42)
--- NOTE | 2017-11-14 17:47 | DS ---
Physical Examination Vital Signs: Vital Signs Temperature 97.0 F L 11/14/17 14:00 Pulse Rate 110 H 11/14/17 16:00 Respiratory Rate 21 H 11/14/17 16:00 Blood Pressure 138/71 11/14/17 16:00 O2 Sat by Pulse Oximetry (%) 100 11/14/17 09:00 Constitutional: Yes: Well Nourished, No Distress, Calm Eyes: Yes: Conjunctiva Clear, EOM Intact, PERRL. No: Diplopia, Sclera Icterus HENT: Yes: WNL, Atraumatic, Normocephalic, Other (No platal edema or Tongue swelling). No: Drooling, Hoarseness, Pharyngeal Erythema, Tonsillar Exudate Neck: Yes: Supple, Trachea Midline Respiratory: Yes: Regular, CTA Bilaterally Gastrointestinal: Yes: Normal Bowel Sounds, Soft. No: Tenderness, Rebound ...Rectal Exam: Yes: Deferred Extremities: No: Calf Tenderness Edema: No Peripheral Pulses: Left Doralis Pedis: 1+, Right Dorsalis Pedis: 1+ Neurological: Yes: Alert, Oriented, Cran Nerves II-XII Intact. No: Aphasia, Asterixis, Ataxia ...Motor Strength: WNL, LUE, LLE, RUE, RLE Labs: CBC, BMP 11/14/17 10:10 11/14/17 10:10 Discharge Summary Reason For Visit: ANGIOEDEMA Current Active Problems Angioedema (Acute) Hospital Course: 72 year old female with a history of DMII, HTN, colon and breast CA, and angioedema presents to the hospital for facial swelling that occurred around 7: 30pm last night. Reports that she felt a tingle in her mouth while she was driving, then noticed that her neck began to swell anteriorly and noticed flushing. She denied shortness of breath during the experience. Reports that she has experienced angioedema 8-9 times over the past 15 years but she states that she has not had a workup done to find out why she has had this happen. Denies ever being intubated before. Reports feeling better now than when she first came to the ED. Condition: Stable - Instructions Referrals: Yann Pope MD [Primary Care Provider] - 11/15/17 Disposition: HOME - Home Medications Comprehensive Discharge Medication List: Ambulatory Orders Levothyroxine [Synthroid -] 125 mcg PO DAILY@0700 #0 tablet 04/28/11 Alendronate Na [Fosamax (Weekly)] 70 mg PO Q7D 07/26/14 Verapamil HCl ER [Calan Sr -] 120 mg PO BID 07/26/14 metFORMIN HCL [Glucophage -] 500 mg PO DAILY 07/26/14 Ranitidine [Zantac -] 150 mg PO HS 02/18/15 Devin/D3/Mag11/Zinc/Trade Show Coordinator/Sukumar/Bor [Caltrate 600+D Plus Tablet] 1 each PO DAILY 01/01 Cholecalciferol (Vitamin D3) [Vitamin D -] 200 unit PO DAILY 01/25/17 Multivitamin/Iron/Folic Acid [Centrum Adults Tablet] 1 each PO DAILY 01/25/17 Diphenhydramine HCl [Benadryl Capsule -] 25 mg PO Q6H PRN capsule 11/14/17 predniSONE [Deltasone -] 20 mg PO BID 6 Days #12 tablet 11/14/17
[2017-11-14] MEDS ORDERED: CHLORHEXIDINE GLUCONATE 4% CLEANSER FOR DECOLONIZATION TP SCH (22:00)
[2017-11-14] MEDS ORDERED: RANITIDINE HCL 150 MG TABLET (FP) PO SCH (22:00)
--- NOTE | 2017-11-15 06:29 | EKG ---
Test Reason : Blood Pressure : / mmHG Vent. Rate : 087 BPM Atrial Rate : 087 BPM P-R Int : 180 ms QRS Dur : 092 ms QT Int : 414 ms P-R-T Axes : 019 -17 013 degrees QTc Int : 498 ms NORMAL SINUS RHYTHM MINIMAL VOLTAGE CRITERIA FOR LVH, MAY BE NORMAL VARIANT PROLONGED QT ABNORMAL ECG WHEN COMPARED WITH ECG OF 05-MAR-2015 13:57, QT HAS LENGTHENED Confirmed by SAAD WHITFIELD, TOMÁS ([id number]) on 11/15/2017 6:29:13 AM Referred By: Confirmed By:TOMÁS NASH MD
== END 2017-11-14 18:15 | disposition home or self-care (01) | DRG 916 ==
LOC: JER 21:26 → JERBED 23:53 → UNDOADMOB 23:53 → INTOOBSV 23:53 → JERBED 11-14 01:03 → JICU 11-14 01:56 → OBSVTOIN 11-14 01:59
PROVIDERS: ADMIT Internal Medicine; ATTEND Internal Medicine
DX: T78.3XXA Angioneurotic edema, initial encounter (principal); E03.9 Hypothyroidism, unspecified; I48.2 Chronic atrial fibrillation; Z79.01 Long term (current) use of anticoagulants; D64.9 Anemia, unspecified; Z85.038 Personal history of other malignant neoplasm of large intestine; Z90.11 Acquired absence of right breast and nipple; Z91.048 Other nonmedicinal substance allergy status; Z79.84 Long term (current) use of oral hypoglycemic drugs; Z85.3 Personal history of malignant neoplasm of breast; E11.9 Type 2 diabetes mellitus without complications; Z90.49 Acquired absence of other specified parts of digestive tract; Z87.891 Personal history of nicotine dependence
CPT/HCPCS: 36415; 36430; 71045-TC-FY; 80048; 80053; 83735; 84100; 85027; 86850; 86870; 86900; 86901; 86902; 90670; 90688; 93005; 93010; 99285-25; G0008; G0009; G0378; J1100; P9017

== ENCOUNTER 2019-01-29 16:30 | Emergency (ER) | payer OTHER ==
[2019-01-29 16:39] VITALS: BP 148/72; PULSE 64; TEMP 97.5; BMI 25.2
[2019-01-29] MEDS ORDERED: IBUPROFEN 600 MG TABLET (FP) PO ONE ×2 (18:06→18:12)
[2019-01-29] MEDS ORDERED: CYCLOBENZAPRINE HCL 10 MG TABLET (FP) PO ONE (18:07)
--- NOTE | 2019-01-29 18:07 | PDOC ---
History of Present Illness - General Chief Complaint: Pain Stated Complaint: LT HIP PAIN History Source: Patient Exam Limitations: No Limitations - History of Present Illness Initial Comments: 01/29/19 18:00 Patient is 73 year old female with h/o bladder lift x2, CA breast, colon CA, HTN , DM, Right knee replacement, right femur fracture with pins c/o left hip pain x 4 days. Patient states that the pain is in deep inside the hip which is now 5 /10 worse with standing, pain occasionally radiates to the thigh. She has taken Advil for the pain last dose was about midday with mild relief of symptoms. States she fell 2 months ago, hitting the back on a wooden table, but was all right after the fall. Denies bowel incontinence. Has bladder incontinence but this is a chronic issue and occurred before the fall. PMD: Dr. Joel PMHX: as above PSOCHX: Occasional glass of wine, no cigarettes ALL: Anaphylaxis to unknown substance, cephalexin GENERAL/CONSTITUTIONAL: [No fever or chills. No weakness. No weight change.] HEAD, EYES, EARS, NOSE AND THROAT: [No change in vision. No ear pain or discharge. No sore throat.] CARDIOVASCULAR: [No chest pain or shortness of breath.] RESPIRATORY: [No cough, wheezing, or hemoptysis.] GASTROINTESTINAL: [No nausea, vomiting, diarrhea or constipation. No rectal bleeding.] GENITOURINARY: [No dysuria, frequency, or change in urination.] MUSCULOSKELETAL: [No joint or muscle swelling or pain. No neck or back pain.] SKIN AND BREASTS: [No rash or easy bruising.] NEUROLOGIC: [No headache, vertigo, loss of consciousness, or loss of sensation.] PSYCHIATRIC: [No depression or anxiety.] ENDOCRINE: [No increased thirst. No abnormal weight change.] HEMATOLOGIC/LYMPHATIC: [No anemia, easy bleeding, or history of blood clots.] ALLERGIC/IMMUNOLOGIC: [No hives or skin allergy. No latex allergy.] GENERAL: [The patient is awake, alert, and fully oriented, in no acute distress. ] HEAD: [Normal with no signs of trauma.] EYES: [Pupils equal, round and reactive to light, extraocular movements intact, sclera anicteric, conjunctiva clear.] ENT: [Ears normal, nares patent, oropharynx clear without exudates. Moist mucous membranes.] NECK: [Normal range of motion, supple without lymphadenopathy, JVD, or masses.] LUNGS: [Breath sounds equal, clear to auscultation bilaterally. No wheezes, and no crackles.] HEART: [Regular rate and rhythm, normal S1 and S2 without murmur, rub.] ABDOMEN: [Soft, nontender, normoactive bowel sounds. No guarding, no rebound. No masses.] EXTREMITIES: [Normal range of motion, no edema. No clubbing or cyanosis. No cords, erythema, or tenderness.] NEUROLOGICAL: [Cranial nerves II through XII grossly intact. Normal speech, normal gait.] PSYCH: [Normal mood, normal affect.] SKIN: [Warm, Dry, normal turgor, no rashes or lesions noted.] Past History - Past Medical History Allergies/Adverse Reactions: Allergies Allergy/AdvReac Type Severity Reaction Status Date / Time cat dander Allergy Verified 01/29/19 16:39 cephalexin [From Keflex] Allergy Verified 01/29/19 16:39 dog dander Allergy Verified 01/29/19 16:39 Home Medications: Ambulatory Orders Levothyroxine [Synthroid -] 125 mcg PO DAILY@0700 #0 tablet 04/28/11 Alendronate Na [Fosamax (Weekly)] 70 mg PO Q7D 07/26/14 Verapamil HCl ER [Calan Sr -] 120 mg PO BID 07/26/14 metFORMIN HCL [Glucophage -] 500 mg PO DAILY 07/26/14 Ranitidine [Zantac -] 150 mg PO HS 02/18/15 Devin/D3/Mag11/Zinc/Veneer Drier Tailer/Sukumar/Bor [Caltrate 600+D Plus Tablet] 1 each PO DAILY 01/01 Cholecalciferol (Vitamin D3) [Vitamin D -] 200 unit PO DAILY 01/25/17 Multivitamin/Iron/Folic Acid [Centrum Adults Tablet] 1 each PO DAILY 01/25/17 Diphenhydramine HCl [Benadryl Capsule -] 25 mg PO Q6H PRN capsule 11/14/17 predniSONE [Deltasone -] 20 mg PO BID 6 Days #12 tablet 11/14/17 Cyclobenzaprine HCl [Flexeril 10 mg] 10 mg PO QID #20 tablet 12/15/19 Tramadol HCl 50 mg PO QID #20 tablet MDD 6 01/29/19 Anemia: Yes Asthma: No Cancer: Yes (/RT.MASTECTOMY/CHEMO ; COLON) Cardiac Disorders: Yes (CHRONIC AFIB) CVA: No COPD: No CHF: No Dementia: No Diabetes: Yes GI Disorders: No (COLON POLYPS & COLON CA) Disorders: No HTN: Yes Hypercholesterolemia: No Liver Disease: No Seizures: No Thyroid Disease: Yes Other medical history: PE - Surgical History Abdominal Surgery: Yes (PARTIAL COLECTOMY FOR COLON CA) Appendectomy: No Cardiac Surgery: Yes (IVC FILTER) Cholecystectomy: No Lung Surgery: No Neurologic Surgery: No Orthopedic Surgery: Yes - Immunization History Immunization Up to Date: Yes - Psycho Social/Smoking Cessation Hx Smoking Status: No Smoking History: Never smoked Have you smoked in the past 12 months: No Number of Cigarettes Smoked Daily: 0 If you are a former smoker, when did you quit?: 1987 Hx Alcohol Use: Yes (SOCIAL) Drug/Substance Use Hx: No Substance Use Type: None Hx Substance Use Treatment: No *Physical Exam - Vital Signs Last Vital Signs Temp Pulse Resp BP Pulse Ox 97.5 F L 64 18 148/72 97 01/29/19 16:33 01/29/19 16:33 01/29/19 16:33 01/29/19 16:33 01/29/19 16:33 Medical Decision Making - Medical Decision Making 01/29/19 18:00 Patient is 73 year old female with h/o bladder lift x2, CA breast, colon CA, HTN , DM, Right knee replacement, right femur fracture with pins c/o left hip pain x 4 days. Patient states that the pain is in deep inside the hip which is now 5 /10 worse with standing, pain occasionally radiates to the thigh. She has taken Advil for the pain last dose was about midday with mild relief of symptoms. States she fell 2 months ago, hitting the back on a wooden table, but was all right after the fall. Denies bowel incontinence. Has bladder incontinence but this is a chronic issue and occurred before the fall. Symptoms consistent with sciatica. Will x-ray hip and pelvis left to rule out occult fracture Give Motrin and Flexeril for pain X-ray reviewed no acute fracture, hip shows DJD. Patient reassessed states her pain is still persistent will give tramadol 50 mg p.o. I discussed the physical exam findings, ancillary test results and final diagnoses with the patient. I answered all of the patient's questions. The patient was satisfied with the care received and felt comfortable with the discharge plan and treatment plan. The Patient agrees to follow up with the primary care physician within 24-72 hours. Discharge - Discharge Information Problems reviewed: Yes Clinical Impression/Diagnosis: Sciatica Qualifiers: Laterality: left Qualified Code(s): M54.32 - Sciatica, left side Condition: Stable Disposition: HOME - Follow up/Referral Referrals: Clayton Hernandes MD [Staff Physician] - - Patient Discharge Instructions Patient Printed Discharge Instructions: DI for Sciatica Additional Instructions: Your Discharge Instructions: You must call primary care physician within 24 hours to arrange follow-up. Return to the Emergency Department with any new, persistent or worsening symptoms, for fever, chills, SOB, dizziness or any other concerning changes that may occur. Follow-up with Ortho for possible rehab and pain management. Continue Motrin as needed for pain. - Post Discharge Activity
[2019-01-29] MEDS ORDERED: CYCLOBENZAPRINE HCL 10 MG TABLET (FP) ONE (18:12)
[2019-01-29] MEDS ORDERED: traMADol HCL 50 MG TABLET PO ONE (19:48)
== END 2019-01-29 21:53 | disposition home or self-care (01) ==
LOC: JER 16:30
DX: M54.32 Sciatica, left side (principal); Z85.3 Personal history of malignant neoplasm of breast; I10 Essential (primary) hypertension; E11.9 Type 2 diabetes mellitus without complications; Z85.038 Personal history of other malignant neoplasm of large intestine
CPT/HCPCS: 73523-TC-FY; 99281-25

== ENCOUNTER 2021-05-27 11:08 | Observation (INO) | payer OTHER, MEDICARE ==
[2021-05-27 11:40] VITALS: BMI 25.3
[2021-05-27 13:59] LABS: BASO % 0.6 % (0-2.0); EOS % 0.3 % (0-4.5); LYMPH % 13.5 % (8-40); MCH 28.5 pg (25.7-33.7); MCHC 33.3 g/dl (32.0-36.0); MEAN CELL VOLUME 85.8 fl (80-96); MEAN PLT VOLUME 8.1 fl (7.5-11.1); NEUT % 77.6 % (42.8-82.8); PLATELET COUNT 279 10^3/uL (134-434); RBC 4.19 M/mm3 (3.60-5.2); RDW 14.3 % (11.6-15.6); WHITE BLOOD COUNT 9.7 K/mm3 (4.0-10.0)
[2021-05-27 14:09] LABS: INR 1.12 (0.83-1.09); PROTHROMBIN TIME (PATIENT) 12.9 SEC (9.7-13.0)
[2021-05-27 14:46] LABS: CALCIUM 9.6 mg/dL (8.5-10.1)
[2021-05-27 14:47] LABS: BLOOD UREA NITROGEN 20.7 mg/dL (7-18)
[2021-05-27 14:50] LABS: CREATININE 0.9 mg/dL (0.55-1.3)
[2021-05-27 14:51] LABS: BILIRUBIN,TOTAL 0.6 mg/dL (0.2-1); TOT PROT 7.6 g/dl (6.4-8.2)
[2021-05-27 15:23] LABS: N-TERMINAL BNP 106.7 pg/ml (5-450)
[2021-05-27] MEDS ORDERED: ACETAMINOPHEN 325 MG TABLET (FP) PO PRN (16:10)
[2021-05-27] MEDS ORDERED: SODIUM CHLORIDE 250 ML IV STA (17:07)
[2021-05-27] MEDS: INSULIN SLIDING SCALE (NOVOLOG) 1 VIAL SQ SCH ×2 (17:24→21:23)
[2021-05-27 17:56] LABS: EPI CELLS >36 /uL (0-25.1); HYALINE CASTS 26 /uL (0-3.1); URINE APPEARANCE CLOUDY; URINE BACTERIA >9,000 /uL (0-1359); URINE BILIRUBIN NEGATIVE (NEGATIVE); URINE COLOR DK YELLOW; URINE GLUCOSE (UA) NEGATIVE (NEGATIVE); URINE KETONE TRACE (NEGATIVE); URINE LEUK ESTERASE 1+ (NEGATIVE); URINE NITRITE POSITIVE (NEGATIVE); URINE PROTEIN TRACE (NEGATIVE); URINE WBC 30 /uL (0-25.8)
[2021-05-27] MEDS ORDERED: MONTELUKAST NA 10 MG TABLET ONE (21:17)
[2021-05-27] MEDS ORDERED: MONTELUKAST NA 10 MG TABLET PO SCH (22:00)
[2021-05-28] MEDS: VERAPAMIL HCL 120 MG E.R. TABLET PO SCH ×2 (00:41→10:23)
[2021-05-28] MEDS: INSULIN SLIDING SCALE (NOVOLOG) 1 VIAL SQ SCH ×2 (06:13→13:02)
[2021-05-28 06:59] LABS: BASO % 0.7 % (0-2.0); EOS % 1.7 % (0-4.5); HEMATOCRIT 31.2 % (32.4-45.2); HEMOGLOBIN 10.6 GM/dL (10.7-15.3); MCH 28.9 pg (25.7-33.7); MCHC 33.9 g/dl (32.0-36.0); MEAN CELL VOLUME 85.3 fl (80-96); MEAN PLT VOLUME 7.8 fl (7.5-11.1); MONO % 12.6 % (3.8-10.2); PLATELET COUNT 207 10^3/uL (134-434); RBC 3.65 M/mm3 (3.60-5.2); RDW 13.7 % (11.6-15.6); WHITE BLOOD COUNT 7.9 K/mm3 (4.0-10.0)
[2021-05-28] MEDS ORDERED: LEVOTHYROXINE NA 100 MCG TABLET (FP) PO SCH (07:00)
[2021-05-28 07:12] LABS: BLOOD UREA NITROGEN 19.6 mg/dL (7-18); CALCIUM 8.7 mg/dL (8.5-10.1); MAGNESIUM 2.1 mg/dL (1.8-2.4)
[2021-05-28 07:15] LABS: CREATININE 0.8 mg/dL (0.55-1.3); PHOSPHOROUS 4.1 mg/dL (2.5-4.9)
[2021-05-28] MEDS ORDERED: LORATADINE 10 MG TABLET PO SCH (10:00)
[2021-05-28] MEDS ORDERED: ENOXAPARIN NA (PORCINE) 40 MG/0.4 ML DISP.SYRIN SQ SCH (10:00)
[2021-05-28] MEDS ORDERED: ASPIRIN 81 MG CHEWABLE TABLETS PO ONE (10:18)
[2021-05-28] MEDS ORDERED: ATORVASTATIN CA 80 MG TABLET (FP) PO ONE ×2 (10:18→16:00)
[2021-05-28] MEDS ORDERED: CLOPIDOGREL BISULFATE 300 MG TABLET PO ONE (10:19)
[2021-05-28 13:42] VITALS: BP 115/65; PULSE 71; TEMP 97.5
== END 2021-05-28 18:09 | disposition home or self-care (01) ==
LOC: JER 11:08 → JERBED 15:27 → J4W 23:13
PROVIDERS: ADMIT Internal Medicine; ATTEND Internal Medicine
PROC: 3E023GC Introduction of Other Therapeutic Substance into Muscle, Percutaneous Approach (ICD-10-PCS; principal; 2021-05-27)
PROC: 3E0337Z Introduction of Electrolytic and Water Balance Substance into Peripheral Vein, Percutaneous Approach (ICD-10-PCS; 2021-05-27)
DX: R00.2 Palpitations (principal); R06.02 Shortness of breath; I48.91 Unspecified atrial fibrillation; Z86.711 Personal history of pulmonary embolism; I10 Essential (primary) hypertension; E11.9 Type 2 diabetes mellitus without complications; T78.3XXA Angioneurotic edema, initial encounter; E03.9 Hypothyroidism, unspecified; J30.81 Allergic rhinitis due to animal (cat) (dog) hair and dander; Z88.1 Allergy status to other antibiotic agents; Z29.8 Encounter for other specified prophylactic measures; Z85.3 Personal history of malignant neoplasm of breast; Z87.891 Personal history of nicotine dependence; R53.83 Other fatigue; Z85.038 Personal history of other malignant neoplasm of large intestine
CPT/HCPCS: 36415; 71046-TC-FY; 80048; 80053; 81003; 82962; 83735; 83880; 84100; 84439; 84443; 84484; 85025; 85610; 85730; 86850; 86870; 86900; 86901; 86902; 93005; 93010; 93306-TC; 96360; 96372; 97116-GP; 97161-GP; 99285-25; C9803-CS; G0378; U0003; U0005

== ENCOUNTER 2022-04-14 06:54 | Inpatient (IN) | payer OTHER, MEDICARE ==
[2022-04-08 16:29] VITALS: BMI 25.0
[2022-04-14] MEDS ORDERED: TRANEXAMIC ACID 1000 MG/10 ML VIAL IVPUSH ONE (07:09)
[2022-04-14] MEDS ORDERED: CEFAZOLIN 2 GM in DEXTROSE 5%-WATER - 50 ML IVPB ONE (07:09)
[2022-04-14] MEDS ORDERED: CELECOXIB 200 MG CAPSULE PO ONE (07:09)
[2022-04-14] MEDS ORDERED: VANCOMYCIN 1,000 MG VIAL (RESTRICTED TO ID ONLY) ONE ×3 (07:48→08:34)
[2022-04-14] MEDS ORDERED: MIDAZOLAM HCL 2 MG/2 ML SINGLE DOSE VIAL ONE (08:34)
[2022-04-14] MEDS ORDERED: BUPIVACAINE HCL/PF 0.5% (5MG/ML) 10 ML VIAL ONE (08:34)
[2022-04-14] MEDS ORDERED: BUPIVACAINE LIPOSOME/PF (EXPAREL) 266 MG/20 ML VIAL ONE (08:34)
[2022-04-14] MEDS ORDERED: MAG HYDROX/AL HYDROX/SIMETH 30 ML UNIT-DOSE CUP PO PRN (10:21)
[2022-04-14] MEDS ORDERED: ONDANSETRON 4 MG/2 ML VIAL IVPUSH PRN (10:21)
[2022-04-14] MEDS ORDERED: TRANEXAMIC ACID 1000 MG/10 ML VIAL ONE ×2 (10:24→11:57)
[2022-04-14] MEDS ORDERED: SUCCINYLCHOLINE CHLORIDE 200 MG/10 ML SYRINGE ONE (10:26)
[2022-04-14] MEDS ORDERED: PROPOFOL 20 ML ONE (10:26)
[2022-04-14] MEDS ORDERED: DEXAMETHASONE SOD PHOSPHATE 4 MG/1 ML VIAL ONE (10:26)
[2022-04-14] MEDS ORDERED: LACTATED RINGERS SOLUTION 1,000 ML IV SCH (10:30)
[2022-04-14] MEDS ORDERED: oxyCODONE HCL 5 MG TABLET PO PRN (12:36)
[2022-04-14] MEDS ORDERED: ACETAMINOPHEN 1000 MG/100 ML BAG IVPB ONE (12:36)
[2022-04-14] MEDS: KETOROLAC TROMETHAMINE 30 MG/1 ML VIAL IVPUSH SCH ×2 (14:00→20:49)
[2022-04-14 19:20] VITALS: RESP 17
[2022-04-14] MEDS: ACETAMINOPHEN 500 MG TABLET (FP) PO SCH (20:50)
[2022-04-14] MEDS: SENNOSIDES/DOCUSATE COMBO (SENNA PLUS) TABLET (UD) PO SCH (21:23)
[2022-04-14] MEDS: oxyCODONE HCL 10 MG SUSTAINED ACTING TABLET PO SCH (21:23)
[2022-04-14] MEDS: VERAPAMIL HCL 240 MG E.R. TABLET PO SCH (21:25)
[2022-04-14] MEDS ORDERED: FAMOTIDINE 20 MG TABLET PO SCH (22:00)
[2022-04-14] MEDS ORDERED: MONTELUKAST NA 10 MG TABLET PO SCH (22:00)
[2022-04-14] MEDS ORDERED: VANCOMYCIN/WATER 1250 MG 1,250 MG/250 ML BAG IVPB ONE (23:00)
[2022-04-15] MEDS: oxyCODONE HCL 5 MG TABLET PO PRN ×2 (06:17→13:47)
[2022-04-15] MEDS: ACETAMINOPHEN 500 MG TABLET (FP) PO SCH ×2 (06:17→09:50)
[2022-04-15] MEDS ORDERED: metFORMIN HCL 500 MG TABLET (FP) PO SCH (07:00)
[2022-04-15] MEDS ORDERED: LEVOTHYROXINE NA 112 MCG TABLET (FP) PO SCH (07:00)
[2022-04-15] MEDS ORDERED: ASPIRIN 325 MG TABLET PO SCH (08:00)
[2022-04-15 08:37] LABS: HEMATOCRIT 28.8 % (32.4-45.2); HEMOGLOBIN 9.8 G/dL (10.7-15.3); MCH 29.8 pg (25.7-33.7); MCHC 34.1 g/dl (32.0-36.0); MEAN CELL VOLUME 87.6 fl (80-96); MEAN PLT VOLUME 8.4 fl (7.5-11.1); PLATELET COUNT 216.3 10^3/uL (134-434); RBC 3.29 10^6/uL (3.60-5.2); RDW 13.7 % (11.6-15.6); WHITE BLOOD COUNT 10.2 10^3/uL (4.0-10.8)
[2022-04-15 09:34] VITALS: BP 112/64; PULSE 86; TEMP 98.1
[2022-04-15] MEDS: VERAPAMIL HCL 240 MG E.R. TABLET PO SCH (09:49)
[2022-04-15] MEDS: SENNOSIDES/DOCUSATE COMBO (SENNA PLUS) TABLET (UD) PO SCH (09:49)
[2022-04-15] MEDS: oxyCODONE HCL 10 MG SUSTAINED ACTING TABLET PO SCH (09:51)
[2022-04-15] MEDS ORDERED: PATIENT'S OWN MEDICATION (NON-FORMULARY) (Cetirizine Hcl [Zyrtec] 10 MG Tablet) PO SCH (10:00)
[2022-04-15] MEDS ORDERED: LORATADINE 10 MG TABLET PO SCH (10:00)
[2022-04-15] MEDS ORDERED: MULTIVITAMINS (DAILY MVI) TABLET (FP) PO SCH (10:00)
[2022-04-15] MEDS ORDERED: [UNRECOGNIZED DRUG - REMARK] PO SCH (10:00)
[2022-04-15] MEDS ORDERED: PANTOPRAZOLE 40 MG TABLET PO SCH (10:00)
== END 2022-04-15 14:42 | DRG 470 ==
LOC: FASUSAT 06:54 → FM/S 14:31 → FASUSAT 04-15 08:00 → FM/S 04-15 08:04 → UNDOADMIN 04-15 08:26 → FM/S 04-15 08:26
PROVIDERS: ADMIT Orthopaedic Surgery; ATTEND Orthopaedic Surgery
PROC: 8E0Y0CZ Robotic Assisted Procedure of Lower Extremity, Open Approach (ICD-10-PCS; 2022-04-14)
PROC: 0SRD0J9 Replacement of Left Knee Joint with Synthetic Substitute, Cemented, Open Approach (ICD-10-PCS; principal; 2022-04-14 10:34)
DX: M17.12 Unilateral primary osteoarthritis, left knee (principal); M25.562 Pain in left knee; E11.9 Type 2 diabetes mellitus without complications
CPT/HCPCS: 36415; 73560-TC-LT-FY; 82962; 85027; 94760; 97010-GP; 97116-GP; 97162-GP; C1713; C1776; C1889

== ENCOUNTER 2023-05-03 05:19 | Day surgery (SDC) | payer OTHER, MEDICARE ==
[2023-04-30 07:59] VITALS: BMI 25.2
[2023-05-03 08:39] VITALS: TEMP 97.8
[2023-05-03 09:20] VITALS: BP 121/60; PULSE 57; RESP 18
== END 2023-05-03 09:25 | disposition home or self-care (01) ==
LOC: JASU-ENDO 05:19
PROVIDERS: ATTEND Internal Medicine Gastroenterology
PROC: 0DBN8ZX Excision of Sigmoid Colon, Via Natural or Artificial Opening Endoscopic, Diagnostic (ICD-10-PCS; 2023-05-03)
PROC: 0DBK8ZX Excision of Ascending Colon, Via Natural or Artificial Opening Endoscopic, Diagnostic (ICD-10-PCS; principal; 2023-05-03 08:00)
DX: Z12.11 Encounter for screening for malignant neoplasm of colon (principal); D12.2 Benign neoplasm of ascending colon; K64.8 Other hemorrhoids; Z85.038 Personal history of other malignant neoplasm of large intestine; Z98.0 Intestinal bypass and anastomosis status
CPT/HCPCS: 88305-TC

== ENCOUNTER 2024-06-30 16:32 | Emergency (ER) | payer OTHER, MEDICARE ==
[2024-06-30 16:56] VITALS: BP 124/67; PULSE 72; RESP 18; TEMP 98.2; BMI 24.2
[2024-06-30 17:15] LABS: ABSOLUTE IMMATURE GRANULOCYTES 0.01 x10^3/uL (0.0-0.031); BASOPHILS # 0.04 x10^3/uL (0.01-0.08); EOSINOPHIL % 4.3 % (0.7-5.8); EOSINOPHILS # 0.29 x10^3/uL (0.04-0.36); HEMATOCRIT 32.9 % (34.1-44.9); HEMOGLOBIN 10.5 g/dL (11.2-15.7); MCHC 31.9 g/dl (32.2-35.5); MEAN CELL VOLUME 89.9 fl (79.4-94.8); MONOCYTE # 0.78 x10^3/uL (0.24-0.86); MONOCYTE % 11.5 % (4.7-12.5); PLATELET COUNT 251 x10^3/uL (182-369); RDW 12.8 % (12.4-16.6)
[2024-06-30 17:16] LABS: INR 1.06 (0.83-1.09); PROTHROMBIN TIME (PATIENT) 11.8 SEC (9.7-13.0)
[2024-06-30 17:18] LABS: ACTIVATED PTT 28.6 SECONDS (25.2-36.5)
[2024-06-30] MEDS: SODIUM CHLORIDE 1,000 ML IV STA (17:20)
[2024-06-30 17:23] LABS: ALBUMIN 4.1 g/dl (3.4-5.0); BILIRUBIN,TOTAL 0.6 mg/dl (0.2-1); CALCIUM 9.2 mg/dl (8.5-10.1); CREATININE 1.1 mg/dl (0.6-1.3); POTASSIUM 3.9 mmol/L (3.5-5.1); TOT PROT 6.5 g/dl (6.4-8.2)
[2024-06-30 18:50] LABS: EPITHELIAL CELLS 0-5 /hpf
[2024-06-30] MEDS ORDERED: NITROFURANTOIN MONOHYD/M-CRYST 100 MG CAPSULE PO ONE (19:05)
[2024-06-30] MEDS: NITROFURANTOIN MONOHYD/M-CRYST 100 MG CAPSULE PO ONE (19:32)
== END 2024-06-30 21:35 | disposition home or self-care (01) ==
LOC: FER 16:32
PROC: 3E0337Z Introduction of Electrolytic and Water Balance Substance into Peripheral Vein, Percutaneous Approach (ICD-10-PCS; principal; 2024-06-30)
DX: R19.7 Diarrhea, unspecified (principal); R00.1 Bradycardia, unspecified
CPT/HCPCS: 36415; 74177-TC; 80053; 81003; 81015; 84484; 85025; 85610; 85730; 87086; 87186; 93005; 99285-25; Q9967